=== PATIENT | male | born 1965 | race Hispanic/Latino ===

== ENCOUNTER 2017-12-23 11:03 | Emergency (ER) | payer SELFPAY ==
--- NOTE | 2017-12-23 11:48 | Emergency Department Report ---
ED Medical Clearance HPI - General Chief complaint: Medical Clearance Stated complaint: HEROINE WITHDRAWL Time Seen by Provider: 12/23/17 11:48 Source: patient Mode of arrival: Ambulatory Limitations: No Limitations - History of Present Illness Complaint: medical clearance request -: Gradual Reason for Medical Clearance: intoxication Place: street Alledged Intoxication: Yes (Heroine) Compliant with Home Medications: No Traumatic Symptoms: denies traumatic injury Associated Symptoms: chest pain Treatments Prior to Arrival: none Home medications: Previous Rx's Medication Instructions Recorded Last Taken Type Hydrocodone Bit/Acetaminophen 1 each PO Q8H PRN #20 tablet 05/23/13 Unknown Rx [Lortab 7.5-500 mg] Allergies/Adverse reactions: Allergies Allergy/AdvReac Type Severity Reaction Status Date / Time No Known Allergies Allergy Unverified 05/23/13 09:51 ED Review of Systems ROS: Stated complaint: HEROINE WITHDRAWL Other details as noted in HPI Comment: All other systems reviewed and negative Constitutional: see HPI. denies: chills, fever Eyes: denies: eye pain, vision change ENT: denies: ear pain, throat pain Respiratory: denies: cough, shortness of breath Cardiovascular: chest pain, palpitations. denies: syncope Endocrine: no symptoms reported Gastrointestinal: nausea. denies: abdominal pain, vomiting Genitourinary: denies: urgency, frequency Musculoskeletal: arthralgia, myalgia. denies: back pain, joint swelling Skin: denies: rash, change in color Neurological: denies: headache, numbness, paresthesias Psychiatric: anxiety. denies: depression, auditory hallucinations, visual hallucinations, homicidal thoughts, suicidal thoughts Hematological/Lymphatic: denies: easy bleeding, easy bruising ED Past Medical Hx - Past Medical History Previous Medical History?: Yes Hx COPD: Yes - Surgical History Past Surgical History?: Yes Additional Surgical History: back surgery 1991 - Social History Smoking Status: Never Smoker - Medications Home Medications: Home Medications Medication Instructions Recorded Confirmed Last Taken Type Hydrocodone Bit/Acetaminophen 1 each PO Q8H PRN #20 tablet 05/23/13 Unknown Rx [Lortab 7.5-500 mg] ED Physical Exam - General Limitations: No Limitations General appearance: alert, appears intoxicated, in distress - Head Head exam: Present: atraumatic, normocephalic, normal inspection - Eye Eye exam: Present: normal appearance, PERRL, EOMI Pupils: Present: normal accommodation - ENT ENT exam: Present: normal exam, normal orophraynx, mucous membranes moist - Neck Neck exam: Present: normal inspection, full ROM - Respiratory Respiratory exam: Present: normal lung sounds bilaterally. Absent: respiratory distress, wheezes, rhonchi, decreased breath sounds - Cardiovascular Cardiovascular Exam: Present: regular rate, normal rhythm, normal heart sounds - GI/Abdominal GI/Abdominal exam: Present: soft, normal bowel sounds. Absent: distended, tenderness, guarding - Extremities Exam Extremities exam: Present: normal inspection, full ROM, normal capillary refill - Back Exam Back exam: Present: normal inspection, full ROM. Absent: tenderness - Neurological Exam Neurological exam: Present: alert, oriented X3, CN II-XII intact - Psychiatric Psychiatric exam: Present: anxious. Absent: homicidal ideation, suicidal ideation - Skin Skin exam: Present: warm, dry, intact, normal color. Absent: rash ED Course Vital Signs 12/23/17 12/23/17 12/23/17 11:17 11:39 14:41 Temperature 98.6 F Pulse Rate 90 89 Respiratory 20 20 16 Rate Blood Pressure 122/90 Blood Pressure 145/77 [Left] O2 Sat by Pulse 91 100 98 Oximetry - Reevaluation(s) Reevaluation #1: 12/23/17 14:42 Patient just denies suicidal or homicidal ideation. He was evaluated in the emergency room after he was medically cleared by [employer] specialist Ms Sandoval. He was given outpatient psychiatric referral for further management of his heroin addiction. Patient was asked to follow-up at the out patient facility he has been referred to. ED Medical Decision Making - Lab Data Result diagrams: 12/23/17 11:34 12/23/17 11:34 - Radiology Data Radiology results: report reviewed - Medical Decision Making Heroine Addiction. ED Disposition Clinical Impression: Heroin addiction, Heroin abuse Disposition: DC-01 TO HOME OR SELFCARE Is pt being admited?: No Does the pt Need Aspirin: No Condition: Stable Instructions: Opioid Dependence (ED) Additional Instructions: Please follow the outpatient referral given to you by [employer] specialist Ms. Sandoval. Please STOP using heroin. Return to the emergency room condition worsen. Referrals: PRIMARY CARE, [Primary Care Provider] - 3-5 Days
[2017-12-23 11:51] LABS: Basophils # (Auto) 0.1 K/mm3 (0.0-0.1); Basophils % (Auto) 0.8 % (0.0-1.8); Eosinophils % (Auto) 0.4 % (0.0-4.3); Hematocrit 42.4 % (35.5-45.6); Hemoglobin 13.9 gm/dl (11.8-15.2); Lymphocytes % (Auto) 27.5 % (13.4-35.0); Mean Corpuscular HGB Conc 33 % (32-34); Mean Corpuscular Hemoglobin 29 pg (28-32); Mean Corpuscular Volume 88 fl (84-94); Monocytes # (Auto) 0.5 K/mm3 (0.0-0.8); Monocytes % (Auto) 6.8 % (0.0-7.3); Platelet Count 345 K/mm3 (140-440); Red Blood Count 4.81 M/mm3 (3.65-5.03); Red Cell Distribution Width 15.7 % (13.2-15.2)
[2017-12-23] MEDS ORDERED: ATIVAN IV ONE (11:53)
[2017-12-23] MEDS ORDERED: BABY ASPIRIN PO ONE (11:55)
[2017-12-23 11:59] LABS: Bilirubin,Urine NEG (Negative); Blood,Urine NEG (Negative); Color,Urine Yellow (Yellow); Protein,Urine <15 mg/dL mg/dL (Negative); Urobilinogen,Urine < 2.0 mg/dL (<2.0); WBC,Urine < 1.0 /HPF (0.0-6.0)
[2017-12-23 12:01] LABS: BUN/Creatinine Ratio 13; Blood Urea Nitrogen 9 mg/dL (9-20); Calcium 9.2 mg/dL (8.4-10.2); Hemolysis Index 5
[2017-12-23 12:09] LABS: Amphetamine Screen,Urine PRESUMPTIVE NEGATIVE; Benzodiazepines Screen,Urine PRESUMPTIVE NEGATIVE; Cannabinoid Screen,Urine PRESUMPTIVE NEGATIVE; Cocaine Screen,Urine PRESUMPTIVE NEGATIVE; Methadone Screen,Urine PRESUMPTIVE NEGATIVE
[2017-12-23 12:21] LABS: Opiate Screen,Urine PRESUMPTIVE POSITIVE
[2017-12-23 12:22] LABS: Alanine Aminotransferase 16 units/L (7-56); Albumin 3.4 g/dL (3.9-5); Bilirubin,Direct < 0.2 mg/dL (0-0.2); Lipase 21 units/L (13-60)
--- NOTE | 2017-12-23 12:58 | XRay Report ---
Chest 2 views: History: Chest pain. Findings: Normal cardiomediastinal silhouette. Trachea is midline. No consolidation, pneumothorax or pleural effusion. Impression: No acute cardiopulmonary findings.
[2017-12-23 14:42] VITALS: BP 145/77
== END 2017-12-23 15:00 | disposition home or self-care (01) ==
LOC: ED 11:03
DX: F11.10 Opioid abuse, uncomplicated (principal); J44.9 Chronic obstructive pulmonary disease, unspecified
CPT/HCPCS: 36415; 71046; 80048; 80074; 80307; 81001; 82550; 83690; 84484; 85025; 96372; 99284; G0480; J2060; 80320

== ENCOUNTER 2018-01-07 18:18 | Emergency (ER) | payer OTHER ==
[2018-01-07] MEDS ORDERED: DIPRIVAN 10 MG/ML IV ONE (20:09)
[2018-01-07] MEDS ORDERED: NACL 0.9% 1000 ML 1,000 ML IV ONE (20:09)
[2018-01-07] MEDS ORDERED: NACL 0.9% IR ONE ×2 (20:09)
[2018-01-07] MEDS ORDERED: BOOSTRIX IM ONE (20:09)
[2018-01-07] MEDS ORDERED: KETALAR IV ONE ×4 (20:09→21:54)
[2018-01-07] MEDS ORDERED: ZOFRAN IV ONE (20:09)
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
[2018-01-07] MEDS ORDERED: NACL 0.9% 2,000 ML IR ONE (21:35)
[2018-01-07] MEDS ORDERED: ceFAZolin 1 GM in NACL 0.9% 20 ML IV SCH (22:27)
[2018-01-07 22:34] LABS: BUN/Creatinine Ratio 13; Blood Urea Nitrogen 9 mg/dL (9-20); Calcium 8.3 mg/dL (8.4-10.2); Hemolysis Index 6
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
[2018-01-08 01:39] VITALS: BP 147/96
[2018-01-08] MEDS ORDERED: TORADOL ONE (01:45)
[2018-01-08] MEDS ORDERED: NACL 0.9% IR ONE (01:59)
[2018-01-08] MEDS ORDERED: TORADOL IV ONE (01:59)
[2018-01-08] MEDS ORDERED: BETADINE TP SCH (08:00)
== END 2018-01-08 03:06 ==
LOC: ED 18:18
DX: S41.112A Laceration without foreign body of left upper arm, initial encounter (principal); S51.812A Laceration without foreign body of left forearm, initial encounter; S41.111A Laceration without foreign body of right upper arm, initial encounter; J44.9 Chronic obstructive pulmonary disease, unspecified; W64.XXXA Exposure to other animate mechanical forces, initial encounter; Y93.89 Activity, other specified; Y92.89 Other specified places as the place of occurrence of the external cause; Y99.8 Other external cause status
CPT/HCPCS: 12035; 36415; 73060; 73090; 73206; 80048; 82550; 90471; 90715; 96361; 96365; 96375; 99285; J0690; J1885; J2405; J2704; J7030; Q9967; A4217

== ENCOUNTER 2019-05-25 11:32 | Emergency (ER) | payer SELFPAY ==
[2019-05-25 11:48] VITALS: BP 124/87
--- NOTE | 2019-05-25 12:03 | Event Note ---
ED Screening Note Date of service: 05/25/19 Time: 12:02 ED Screening Note: 53 y/o male comes in for bilateral leg swelling after starting Norvasc. This initial assessment/diagnostic orders/clinical plan/treatment(s) is/are subject to change based on patients health status, clinical progression and re- assessment by fellow clinical providers in the ED. Further treatment and workup at subsequent clinical providers discretion. Patient/guardian urged not to elope from the ED as their condition may be serious if not clinically assessed and managed. Initial orders include:
--- NOTE | 2019-05-25 13:14 | Emergency Department Report ---
ED Recheck HPI - General Chief Complaint: Extremity Injury, Lower Stated Complaint: HBP Time Seen by Provider: 05/25/19 12:01 Source: patient Mode of arrival: Ambulatory Limitations: No Limitations - History of Present Illness Initial Comments: 53 YO MALE COMES TO ER AFTER BEING STARED ON NORVASC 10 MG DAILY BY [facility] ABOUT 1 M AGO. SINCE THEN HE HAS HAD BLE ANKLE SWELLING. HE HAS ROSELIA- OUT OF HIS ORDINARY COPD/SMOKER. HE DENIES CP. HE DENIES FEVER/CHILLS OR OTHER COMPLAINTS HE HAS APPNT AT [facility] BUT THE SWELLING IS INTERFERING WITH HIS WORK SO HE COME TO ER. Complaint: other -: Gradual - Related Data Previous Rx's Medication Instructions Recorded Last Taken Type hydroCHLOROthiazide [HCTZ] 25 mg PO QDAY #30 tablet 05/25/19 Unknown Rx Allergies Allergy/AdvReac Type Severity Reaction Status Date / Time No Known Allergies Allergy Unverified 05/23/13 09:51 ED Review of Systems ROS: Stated complaint: HBP Other details as noted in HPI Comment: All other systems reviewed and negative ED Past Medical Hx - Past Medical History Hx Hypertension: Yes Hx Congestive Heart Failure: No Hx Psychiatric Treatment: Yes (RECOVERING DRUG ADDICT) Hx COPD: Yes - Surgical History Past Surgical History?: Yes Additional Surgical History: back surgery 1991 - Family History Family history: no significant - Social History Smoking Status: Current Every Day Smoker Substance Use Type: None - Medications Home Medications: Home Medications Medication Instructions Recorded Confirmed Last Taken Type hydroCHLOROthiazide [HCTZ] 25 mg PO QDAY #30 tablet 05/25/19 Unknown Rx ED Physical Exam - General Limitations: No Limitations General appearance: alert - Head Head exam: Present: normocephalic - Eye Eye exam: Present: PERRL - ENT ENT exam: Present: mucous membranes moist - Neck Neck exam: Present: normal inspection - Respiratory Respiratory exam: Present: normal lung sounds bilaterally - Cardiovascular Cardiovascular Exam: Present: regular rate - GI/Abdominal GI/Abdominal exam: Present: soft, normal bowel sounds - Extremities Exam Extremities exam: Present: normal inspection, full ROM, normal capillary refill, pedal edema (MILD ON EXAM- PT INSISTS THEY ARE SWOLLEN FOR HIM) - Back Exam Back exam: Present: normal inspection, full ROM - Neurological Exam Neurological exam: Present: alert, oriented X3, CN II-XII intact, normal gait - Psychiatric Psychiatric exam: Present: normal affect, normal mood - Skin Skin exam: Present: warm, dry, intact ED Course Vital Signs 05/25/19 11:46 Temperature 97.6 F Pulse Rate 95 H Respiratory 18 Rate Blood Pressure 124/87 O2 Sat by Pulse 97 Oximetry ED Recheck MDM - Core Measures Measure Exclusions: not indicated - Differential Diagnosis Prescription Refill(s) - Medical Decision Making NEWLY TAKING NORVASC NO CP NO SOB NO ABD BLOATING SWELLING NOT APPRECIABLE TO ME ON EXAM LIKELY HIS SWELLING HE REPORTS IS DUE TO NORVASC WILL DEC TO 5MG AND ADD HCTZ HE ALREADY HAS APPNT WITH [facility] AND WILL FOLLOW UP LONG DISCUSSION WITH PT ABOUT COMPLIANCE AND FOLLOW UP TO BE SURE HIS BP REMAINS WELL CONTROLLED Vital Signs 05/25/19 11:46 Temperature 97.6 F Pulse Rate 95 H Respiratory 18 Rate Blood Pressure 124/87 O2 Sat by Pulse 97 Oximetry Critical care attestation.: If time is entered above; I have spent that time in minutes in the direct care of this critically ill patient, excluding procedure time. ED Disposition Clinical Impression: HTN (hypertension), Side effect of drug Disposition: DC-01 TO HOME OR SELFCARE Is pt being admited?: No Does the pt Need Aspirin: No Condition: Stable Instructions: DASH Eating Plan (ED) Additional Instructions: DECREASE SALT IN DIET DECREASE FAST FOOD TAKE NORVASC 5 MG DAILY WITH HCTZ GIVEN TODAY FOLLOW UP WITH [facility] JUNAID WE DISCUSSED Prescriptions: hydroCHLOROthiazide [HCTZ] 25 mg PO QDAY #30 tablet Time of Disposition: 13:16
== END 2019-05-25 13:36 | disposition home or self-care (01) ==
LOC: ED 11:32
DX: T46.1X5A Adverse effect of calcium-channel blockers, initial encounter (principal); I10 Essential (primary) hypertension; J44.9 Chronic obstructive pulmonary disease, unspecified; F17.200 Nicotine dependence, unspecified, uncomplicated; Z98.890 Other specified postprocedural states; Z79.899 Other long term (current) drug therapy; X58.XXXA Exposure to other specified factors, initial encounter; Y93.89 Activity, other specified; Y92.89 Other specified places as the place of occurrence of the external cause; Y99.8 Other external cause status

== ENCOUNTER 2019-09-02 09:49 | Emergency (ER) | payer SELFPAY ==
[2019-09-02] MEDS ORDERED: KETOROLAC 60 MG/2 ML INJ IM ONE (13:09)
[2019-09-02] MEDS ORDERED: dexAMETHasone 20 MG/5 ML VIAL IM ONE (13:10)
--- NOTE | 2019-09-02 13:11 | Emergency Department Report ---
ED Neck Pain HPI Chief Complaint: Neck Pain/Injury Stated Complaint: NECK PAIN EXTREME Time Seen by Provider: 09/02/19 13:04 Duration: 4 Days Neck Pain Location: Posterior Neck Severity: severe Mechanism: Other Symptoms: Yes Pain with Movement, Yes Radiation to Left Upper Ext, Yes Radiation to Right Upper Ext, No Numbness, No Weakness, No Previous History Other History: This is a 53-year-old male who presents to the emergency room with posterior neck pain for one week. Past medical history of hypertension and IV drug use. 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 He denies loss of consciousness. Patient states taken NSAIDs without relief. States he is unable to rotate head left to right due to excruciating pain. Patient states it feels as if something is pulling. He denies numbness or tingling, swelling, bruising, or radiating pain, or weakness. ED Review of Systems ROS: Stated complaint: NECK PAIN EXTREME Other details as noted in HPI Constitutional: denies: chills, fever Respiratory: denies: cough, shortness of breath, wheezing Cardiovascular: denies: chest pain, palpitations Gastrointestinal: denies: abdominal pain, nausea, diarrhea Musculoskeletal: arthralgia (posterior neck pain). denies: back pain, joint swelling Skin: denies: rash, lesions Neurological: denies: headache, weakness, paresthesias Psychiatric: denies: anxiety, depression ED Past Medical Hx - Past Medical History Hx Hypertension: Yes Hx Congestive Heart Failure: No Hx Psychiatric Treatment: Yes (RECOVERING DRUG ADDICT) Hx COPD: Yes - Surgical History Additional Surgical History: back surgery 1991 - Social History Smoking Status: Current Every Day Smoker Substance Use Type: None - Medications Home Medications: Home Medications Medication Instructions Recorded Confirmed Last Taken Type hydroCHLOROthiazide [HCTZ] 25 mg PO QDAY #30 tablet 05/25/19 Unknown Rx Ibuprofen [Motrin 800 MG tab] 800 mg PO Q8HR PRN #20 tablet 09/02/19 Unknown Rx Methocarbamol [Robaxin] 500 mg PO BID PRN #15 tablet 09/02/19 Unknown Rx methylPREDNISolone [Medrol 4MG 4 mg PO DAILY #1 tab.ds.pk 09/02/19 Unknown Rx DOSEPAK (21 tabs)] Neck Pain Exam - Exam General: Vital signs noted. No distress. Alert and acting appropriately. HEENT: No Facial Pain, No Scalp Tenderness, No Contusion, No Abrasion, No Laceration Neck Pain: Yes Midline Tenderness (C3, C4, no deformity or step off), Yes Pain with Rotation Right (unable to tolerate ), Yes Pain with Rotation Left (unable to tolerate), Yes Pain with Extension (20 extension pain with ROM), Yes Pain with Flexion (20 flexion, pain with ROM), Yes pain with R Lateral Flexion, Yes Pain with L Lateral Flexion, No Right Paraspinal Tenderness, No Left Paraspinal Tenderness, No Right Trapezius Tenderness, No Left Trapezius Tenderness Chest: Yes Clear Lung Sounds, No Pain with Respirations Heart: Yes Regular, No Murmur Back: No Thoracic Tenderness, No Lumbar Tenderness Neuro: No Numbness, No Weakness, No Normal Reflexes, No Radicular Deficits ED Course Vital Signs 09/02/19 09:53 Temperature 97.7 F Pulse Rate 81 Respiratory 18 Rate Blood Pressure 188/112 [Left] Vital Signs 09/02/19 09/02/19 09:53 15:49 Temperature 97.7 F 98.2 F Pulse Rate 81 92 H Respiratory 18 18 Rate Blood Pressure 188/112 157/85 [Left] O2 Sat by Pulse 100 Oximetry ED Medical Decision Making - Radiology Data Radiology results: report reviewed XR spine cervical 2-3V INDICATION / CLINICAL INFORMATION: posterior neck pain. COMPARISON: None available. FINDINGS: BONES/JOINT(S): No acute fracture or subluxation. No significant degenerative changes. SOFT TISSUES: No significant abnormality. ADDITIONAL FINDINGS: None. - Medical Decision Making This is a 53-year-old male who presents to the emergency room with posterior neck pain for one week. Past medical history of hypertension. Given analgesics and steroids while in the ER. Negative radiating pain, negative numbness or tingling, step-off, or deformity. X-ray of cervical spine dictated by radiologist with no acute findings. We'll treat for cervical strain. Start NSAIDs, muscle relaxer, and steroids. Follow-up with primary care doctor. Return to work in 2 days. Patient discharged home stable. Critical care attestation.: If time is entered above; I have spent that time in minutes in the direct care of this critically ill patient, excluding procedure time. ED Disposition Clinical Impression: Neck pain Cervical muscle strain Qualifiers: Encounter type: initial encounter Qualified Code(s): S16.1XXA - Strain of muscle, fascia and tendon at neck level, initial encounter Disposition: DC-01 TO HOME OR SELFCARE Is pt being admited?: No Condition: Stable Instructions: Cervical Spine Strain (ED) Additional Instructions: Rest Use ice or heat on affected area for 20 minutes and off for 2 hours. Take pain medication as needed for pain. Don't drive or operate heavy machinery while taking muscle relaxers because they may cause drowsiness. Follow up with Primary Care Provider in 2-3 days. Prescriptions: methylPREDNISolone [Medrol 4MG DOSEPAK (21 tabs)] 4 mg PO DAILY #1 tab.ds.pk Ibuprofen [Motrin 800 MG tab] 800 mg PO Q8HR PRN #20 tablet PRN Reason: Pain , Severe (7-10) Methocarbamol [Robaxin] 500 mg PO BID PRN #15 tablet PRN Reason: Muscle Spasm Referrals: ROCCO SOLO MD [Staff Physician] - 3-5 Days [facility], [facility] [Provider Group] - 3-5 Days [facility] [Outside] - 3-5 Days Forms: Work/School Release Form(ED) Time of Disposition: 15:23
--- NOTE | 2019-09-02 13:51 | XRay Report ---
XR spine cervical 2-3V INDICATION / CLINICAL INFORMATION: posterior neck pain. COMPARISON: None available. FINDINGS: BONES/JOINT(S): No acute fracture or subluxation. No significant degenerative changes. SOFT TISSUES: No significant abnormality. ADDITIONAL FINDINGS: None. Signer Name: Booker Tee MD Signed: 09/02/2019 1:47 PM Workstation Name: [id number]
[2019-09-02 15:50] VITALS: BP 157/85
== END 2019-09-02 13:50 | disposition home or self-care (01) ==
LOC: ED 09:49
DX: S16.1XXA Strain of muscle, fascia and tendon at neck level, initial encounter (principal); I10 Essential (primary) hypertension; J44.9 Chronic obstructive pulmonary disease, unspecified; F17.200 Nicotine dependence, unspecified, uncomplicated; Z98.890 Other specified postprocedural states; Z79.899 Other long term (current) drug therapy; W22.8XXA Striking against or struck by other objects, initial encounter; Y93.89 Activity, other specified; Y92.89 Other specified places as the place of occurrence of the external cause; Y99.8 Other external cause status
CPT/HCPCS: 72040; 96372; 99283; J1100; J1885